=== PATIENT | female | born 1970 | race Caucasian/White ===

== ENCOUNTER 2019-09-15 11:04 | Inpatient (IN) | payer BC ==
[~2019-09-15] VITALS: Ht 162.6 cm; Wt 90.0 kg
[~2019-09-15 11:04] MED LIST: CITA20TA28 PO; ESTR0.25
[2019-09-15 11:34] LABS: BASOPHILS # (AUTO) 0.1 X10'3 (0-0.2); BASOPHILS % (AUTO) 1.3 % (0-1); HEMATOCRIT 45.5 % (35.0-45.0); HEMOGLOBIN 15.1 g/dl (12.0-16.0); LYMPHOCYTES # (AUTO) 2.1 X10'3 (1.1-4.8); MEAN CORPUSCULAR HEMOGLOBIN 30.3 PG (27.0-31.0); MEAN CORPUSCULAR HGB CONC 33.3 g/dL (33.0-36.5); MEAN CORPUSCULAR VOLUME 91.1 FL (78-98); MEAN PLATELET VOLUME 8.1 FL (7.4-10.4); MONOCYTES # (AUTO) 0.4 X10'3 (0-0.9); MONOCYTES % (AUTO) 7.8 % (2-12); NEUTROPHILS # (AUTO) 2.2 X10'3 (1.8-7.7); NEUTROPHILS % (AUTO) 45.9 % (42-75); PLATELET COUNT 271 X10'3 (140-440); RED BLOOD COUNT 4.99 X10'6 (4.20-5.60); RED CELL DISTRIBUTION WIDTH 12.8 % (11.5-14.5); WHITE BLOOD COUNT 4.8 X10'3 (4.5-11.0)
[2019-09-15] MEDS ORDERED: ketorolac trometh. 30mg/ml inj. IV ONE (11:35)
[2019-09-15] MEDS ORDERED: morphine 4 MG/ML inj SYRINge IV PRN (11:35)
[2019-09-15] MEDS ORDERED: LORazepam 2 mg/ml vial IV ONE (11:35)
[2019-09-15] MEDS ORDERED: normal saline 1000ML IV soln IVB ONE (11:35)
[2019-09-15] MEDS ORDERED: ondansetron/PF 4mg/2ml inj IV ONE (11:35)
[2019-09-15] MEDS ORDERED: famotidine/PF 10 mg/ml inj IV ONE (11:35)
[2019-09-15 11:49] LABS: ALANINE AMINOTRANSFERASE 43 U/L (12-78); ALBUMIN 4.1 G/DL (3.4-5.0); ALBUMIN/GLOBULIN RATIO 1.1 (1.1-1.5); ALKALINE PHOSPHATASE 80 IU/L (46-116); ANION GAP 12 (8-16); ASPARTATE AMINO TRANSFERASE 29 U/L (10-37); BILIRUBIN,TOTAL 0.4 MG/DL (0.1-1.0); BLOOD UREA NITROGEN 16 MG/DL (7-18); BUN/CREATININE RATIO 17.8 (6.6-38.0); CALCIUM 9.7 MG/DL (8.5-10.1); CHLORIDE 103 MMOL/L (99-107); GLUCOSE 85 MG/DL (70-104); LIPASE 929 U/L (73-393); POTASSIUM 4.3 MMOL/L (3.5-5.1); SODIUM 141 MMOL/L (135-145); TOTAL CARBON DIOXIDE 26.3 MMOL/L (24-32); TOTAL PROTEIN 7.8 G/DL (6.4-8.2); eGFR 67 ML/MIN
[2019-09-15 11:49] LABS: URINE HCG NEGATIVE (NEG)
[2019-09-15 11:50] LABS: CLARITY,URINE SLIGHTLY CLOUDY (Clear); COLOR,URINE STRAW (Yellow); GLUCOSE, URINE NEGATIVE (Neg); KETONES,URINE NEGATIVE (Neg); LEUKOCYTE ESTERASE ,URINE NEGATIVE (Neg); NITRITES, URINE NEGATIVE (Neg); OCCULT BLOOD,URINE NEGATIVE (Neg); PROTEIN,URINE NEGATIVE (Neg); UROBILINOGEN,URINE 0.2 E.U/dL (0.2-1.0)
[2019-09-15 11:54] LABS: UA COLLECTION TYPE CLN CATCH MIDSTREAM
[2019-09-15 11:56] LABS: MUCUS STRANDS FEW /LPF (Neg); SQUAMOUS EPITHELIAL CELL,UR MANY /LPF (FEW); TRANSITIONAL EPI CELLS,URINE FEW /HPF
[2019-09-15 11:57] LABS: BACTERIA,URINE 1+ /HPF (Neg); RBC,URINE 0-2 /HPF (0-2); WBC,URINE 0-4 /HPF (0-4)
--- NOTE | 2019-09-15 12:24 | NUR ---
pt ate last 1730 last night , 0630 today sips of water.
[2019-09-15] MEDS ORDERED: morphine 4 MG/ML inj SYRINge IV ONE (12:30)
[2019-09-15] MEDS ORDERED: mag hydrox/Alum hydrox/simeth 30ml oral suspension PO PRN (12:35)
[2019-09-15] MEDS ORDERED: morphine 2 MG/ML inj. syringe IV PRN (12:35)
[2019-09-15] MEDS ORDERED: acetaminophen 325mg tablet PO PRN (12:35)
[2019-09-15] MEDS ORDERED: magnesium hydroxide 30ml (MOM) UD suspension PO PRN (12:35)
[2019-09-15] MEDS ORDERED: HYDR-3972 PO (12:47)
[2019-09-15] MEDS ORDERED: CITA20TA28 PO (12:50)
[2019-09-15] MEDS ORDERED: OMEP20CA15 PO (12:52)
[2019-09-15] MEDS ORDERED: ESTR50GE TOP (12:52)
[2019-09-15 13:00] VITALS: BP 128/54
[2019-09-15] MEDS: morphine 2 MG/ML inj. syringe IV PRN ×2 (14:28→19:59)
[2019-09-15] MEDS: normal saline 1000ml 1,000 ML IV SCH ×2 (14:41→20:03)
[2019-09-15] MEDS: ondansetron/PF 4mg/2ml inj IV PRN (18:37)
--- NOTE | 2019-09-15 18:54 | NUR ---
Patient in room [facility]. I have received report from Silvana Sharma and had the opportunity to ask questions and assume patient care.
[2019-09-15 20:00] VITALS: BP 133/71
[2019-09-15] MEDS: heparin, porcine 5000 units/ml vial SQ SCH (20:00)
[2019-09-16 00:02] VITALS: BP 112/50
[2019-09-16] MEDS: normal saline 1000ml 1,000 ML IV SCH ×4 (01:53→23:14)
[2019-09-16] MEDS: ondansetron/PF 4mg/2ml inj IV PRN ×3 (03:54→21:25)
[2019-09-16] MEDS: morphine 2 MG/ML inj. syringe IV PRN ×4 (04:28→19:16)
[2019-09-16 05:06] LABS: BASOPHILS % (AUTO) 0.5 % (0-1); EOSINOPHILS # (AUTO) 0.1 X10'3 (0-0.9); EOSINOPHILS % (AUTO) 1.4 % (0-6); HEMATOCRIT 39.9 % (35.0-45.0); HEMOGLOBIN 13.3 g/dl (12.0-16.0); LYMPHOCYTES # (AUTO) 1.7 X10'3 (1.1-4.8); LYMPHOCYTES % (AUTO) 42.8 % (21-51); MEAN CORPUSCULAR HEMOGLOBIN 30.6 PG (27.0-31.0); MEAN CORPUSCULAR HGB CONC 33.2 g/dL (33.0-36.5); MEAN PLATELET VOLUME 8.6 FL (7.4-10.4); MONOCYTES # (AUTO) 0.3 X10'3 (0-0.9); MONOCYTES % (AUTO) 8.3 % (2-12); NEUTROPHILS # (AUTO) 1.9 X10'3 (1.8-7.7); PLATELET COUNT 204 X10'3 (140-440); RED BLOOD COUNT 4.34 X10'6 (4.20-5.60); RED CELL DISTRIBUTION WIDTH 12.8 % (11.5-14.5)
[2019-09-16 05:15] LABS: ALANINE AMINOTRANSFERASE 233 U/L (12-78); ALBUMIN 3.2 G/DL (3.4-5.0); ALBUMIN/GLOBULIN RATIO 1.1 (1.1-1.5); ALKALINE PHOSPHATASE 92 IU/L (46-116); ANION GAP 9 (8-16); ASPARTATE AMINO TRANSFERASE 165 U/L (10-37); BILIRUBIN,TOTAL 0.4 MG/DL (0.1-1.0); BLOOD UREA NITROGEN 12 MG/DL (7-18); BUN/CREATININE RATIO 14.8 (6.6-38.0); CALCIUM 8.5 MG/DL (8.5-10.1); CHLORIDE 111 MMOL/L (99-107); CREATININE 0.81 MG/DL (0.40-0.90); GLUCOSE 84 MG/DL (70-104); POTASSIUM 4.3 MMOL/L (3.5-5.1); SODIUM 143 MMOL/L (135-145); TOTAL CARBON DIOXIDE 23.1 MMOL/L (24-32); TOTAL PROTEIN 6.2 G/DL (6.4-8.2); eGFR 75 ML/MIN
--- NOTE | 2019-09-16 06:01 | NUR ---
Problems reprioritized. Patient report given, questions answered & plan of care reviewed with Evon Richards RN.
[2019-09-16 07:30] VITALS: BP 124/70
[2019-09-16] MEDS: heparin, porcine 5000 units/ml vial SQ SCH ×2 (08:46→19:16)
[2019-09-16 11:30] VITALS: BP 111/52
[2019-09-16 11:38] LABS: LIPASE 127 U/L (73-393)
[2019-09-16 20:00] VITALS: BP 139/55
--- NOTE | 2019-09-16 20:30 | NUR ---
Patient in room [facility]. I have received report from Anne MAGUIRE and had the opportunity to ask questions and assume patient care.
--- NOTE | 2019-09-16 22:16 | NUR ---
Patient in room [facility]. I have received report from Anne MAGUIRE and had the opportunity to ask questions and assume patient care. Pt just got out of shower, is back in bed and resting. No signs of distress, will continue to monitor.
[2019-09-17] VITALS: BP 133/71
[2019-09-17] MEDS: morphine 2 MG/ML inj. syringe IV PRN ×3 (00:01→11:26)
[2019-09-17] MEDS: normal saline 1000ml 1,000 ML IV SCH ×2 (05:19→11:13)
[2019-09-17] MEDS: ondansetron/PF 4mg/2ml inj IV PRN (05:32)
[2019-09-17 05:52] LABS: BASOPHILS % (AUTO) 0.6 % (0-1); EOSINOPHILS # (AUTO) 0.1 X10'3 (0-0.9); EOSINOPHILS % (AUTO) 1.4 % (0-6); HEMATOCRIT 37.8 % (35.0-45.0); HEMOGLOBIN 12.8 g/dl (12.0-16.0); LYMPHOCYTES # (AUTO) 1.7 X10'3 (1.1-4.8); LYMPHOCYTES % (AUTO) 42.9 % (21-51); MEAN CORPUSCULAR HEMOGLOBIN 31.2 PG (27.0-31.0); MEAN CORPUSCULAR HGB CONC 33.9 g/dL (33.0-36.5); MEAN PLATELET VOLUME 8.3 FL (7.4-10.4); MONOCYTES # (AUTO) 0.3 X10'3 (0-0.9); MONOCYTES % (AUTO) 8.7 % (2-12); NEUTROPHILS # (AUTO) 1.9 X10'3 (1.8-7.7); NEUTROPHILS % (AUTO) 46.4 % (42-75); PLATELET COUNT 182 X10'3 (140-440); RED BLOOD COUNT 4.11 X10'6 (4.20-5.60); RED CELL DISTRIBUTION WIDTH 12.5 % (11.5-14.5)
[2019-09-17 06:00] VITALS: BP 120/62
[2019-09-17 06:11] LABS: ALANINE AMINOTRANSFERASE 193 U/L (12-78); ALBUMIN/GLOBULIN RATIO 0.9 (1.1-1.5); ALKALINE PHOSPHATASE 96 IU/L (46-116); ANION GAP 7 (8-16); ASPARTATE AMINO TRANSFERASE 99 U/L (10-37); BILIRUBIN,TOTAL 0.5 MG/DL (0.1-1.0); BLOOD UREA NITROGEN 7 MG/DL (7-18); BUN/CREATININE RATIO 9.1 (6.6-38.0); CALCIUM 8.5 MG/DL (8.5-10.1); CHLORIDE 109 MMOL/L (99-107); CREATININE 0.77 MG/DL (0.40-0.90); GLUCOSE 84 MG/DL (70-104); SODIUM 142 MMOL/L (135-145); TOTAL CARBON DIOXIDE 25.8 MMOL/L (24-32); TOTAL PROTEIN 6.2 G/DL (6.4-8.2); eGFR 80 ML/MIN
--- NOTE | 2019-09-17 06:30 | NUR ---
received report from Nori MAGUIRE
--- NOTE | 2019-09-17 06:38 | NUR ---
Problems reprioritized. Patient report given, questions answered & plan of care reviewed with Maddie MAGUIRE.
--- NOTE | 2019-09-17 06:39 | NUR ---
Problems reprioritized. Patient report given, questions answered & plan of care reviewed with Maddie MAGUIRE.
--- NOTE | 2019-09-17 06:46 | NUR ---
PAGER ID: [phone] MESSAGE: [phone] Sada Sosa Do you want and add on :Lipase for today? Maddie [phone]
[2019-09-17] MEDS: heparin, porcine 5000 units/ml vial SQ SCH (07:07)
--- NOTE | 2019-09-17 07:21 | NUR ---
PAGER ID: [phone] MESSAGE: [phone] Sada Sosa Do you want a lipase ordered? Maddie [phone]
[2019-09-17 10:49] VITALS: BP 108/50
--- NOTE | 2019-09-17 11:20 | NUR ---
IN WITH DOCTOR, PATIENT YELLING SHE CAN CONTROL HER PAIN BETTER AT HOME WITH MARIJ[employer]. EDUCATED PATIENT THE PAIN MED WAS DUE AT 1100, MEDICATION GIVEN, PATIENT TO BE DISCHARGED TODAY.
[2019-09-17] MEDS ORDERED: HYDR-4383 PO (11:26)
--- NOTE | 2019-09-17 13:06 | NUR ---
Went to check on patients ride status, and her neighbor stated she left an hour ago.
== END 2019-09-17 12:00 | disposition home or self-care (01) | DRG 440 ==
LOC: ER 11:04 → ED HOLD 12:33 → SUR 3N 13:19
PROVIDERS: ADMIT Family Medicine; ATTEND Family Medicine
DX: K85.90 Acute pancreatitis without necrosis or infection, unspecified (principal); F12.90 Cannabis use, unspecified, uncomplicated; G89.29 Other chronic pain; K86.1 Other chronic pancreatitis; Z87.11 Personal history of peptic ulcer disease; Z90.49 Acquired absence of other specified parts of digestive tract; Z88.5 Allergy status to narcotic agent; Z90.710 Acquired absence of both cervix and uterus; Z87.440 Personal history of urinary (tract) infections
CPT/HCPCS: 36415; 74181; 80053; 81001; 81025; 83690; 85025; 87081; 96374; 96375; 99285; G0378; J1644; J1885; J2060; J2270; J2405; J3490; J7030